=== PATIENT | male | born 1980 | race Caucasian/White ===

== ENCOUNTER 2022-02-06 10:47 | Emergency (ER) | payer SELFPAY ==
[2022-02-06 11:00] VITALS: BP 152/105; PULSE 103; RESP 18; TEMP 37.2; O2SAT 99; BMI 33.3
--- NOTE | 2022-02-06 11:13 | W.ED.EYEPROB ---
HPI - Eye Problem General: Chief complaint: Eye Problems Stated complaint: Left eye red and sore for a week Time Seen by Provider: 02/06/22 10:59 Source: patient Mode of arrival: ambulatory Limitations: no limitations History of Present Illness: 41-year-old male states he has had redness to his left eye over the last 6 days he had some slight pain he has had discharge denies any known injuries denies any foreign bodies states has been doing [id number] drops it was improving but is worsened over the last 2 days. Denies any change in vision Associated symptoms: Denies fever(s), headache(s), nausea, neck pain or vomiting Review of Systems Const: Denies: fever(s), chills, body aches or change in appetite Eyes: Reports: eye redness ENMT: Denies: throat pain or dental pain Card: Denies: chest pain Resp: Denies: dyspnea GI: Denies: abdominal pain, nausea, vomiting or diarrhea : Denies: dysuria Musc: Denies: neck pain or back pain Skin/Breast: Denies: rash Neuro: Denies: headache(s) Psych: Denies: depression Jose/Lymph: Denies: easy bruising All/Imm: Denies: urticaria PFSH ED PFSH: Medical History No pertinent past medical history Social History (Updated 02/06/22 @ 11:17 by Shiela King MD) Substance/Drug Use: never Physical Exam Const: COMMON NORMALS: no acute distress, patient oriented x3 and healthy appearing HENMT: COMMON NORMALS: normocephalic and atraumatic HEAD & SCALP: normocephalic and atraumatic Eye: COMMON NORMALS: Equal, round and reactive pupils present and EOMs intact bilaterally PUPIL: Yes Equal, round and reactive pupils present OTHER: Small corneal abrasion under fluorescein stain does have conjunctivitis Neck/C-Spine: COMMON NORMALS: full ROM and supple Chest: COMMONS NORMALS: normal inspection of the chest Resp: COMMON NORMALS: normal respiratory effort Cardio: COMMON NORMALS: regular rate, regular rhythm and No murmurs present (Cardio) RATE: regular rate RHYTHM: regular rhythm GI: INSPECTION: Yes normal to inspection Extremity: COMMON NORMALS: normal to inspection and full ROM Neuro: COMMON NORMALS: patient oriented x3, moves all extremities and no focal motor deficits Psych: COMMON NORMALS: mental status grossly normal, Normal thought process present and cooperative THOUGHT PROCESS: Normal thought process present Skin: COMMON NORMALS: no rashes or lesions noted and no wounds GENERAL SKIN EXAM: no rashes or lesions noted Course Vital Signs: Vital signs: Vital Signs Temperature 99 F 02/06/22 11:00 Pulse Rate 103 H 02/06/22 11:00 Respiratory Rate 18 02/06/22 11:00 Blood Pressure 152/105 02/06/22 11:00 Pulse Oximetry 99 02/06/22 11:00 MDM - Eye Problem Medical Decision Making Patient presents here with corneal abrasion that is minor with a conjunctivitis as well we will start him on erythromycin to follow-up with ophthalmology he has no ulcers he is stable for discharge return if worsening Discharge Plan Discharge Patient Disposition: Home Clinical Impression: Bacterial conjunctivitis, Corneal abrasion Condition: Stable Prescriptions: New erythromycin 5 mg/gram (0.5 %) ointment 1 applic ophthalmic (eye) Q6H 7 Days Qty: 3.5 0RF Discharge Orders: Discharge ED (Routine); Ordered 02/06/22 Ordered By: Shiela King Referrals: Mora Rdz, SENIOR SALES REPRESENTATIVE-C [Primary Care Provider] - Ino Merida MD [Physician] - 1-3 days Discharge Diet: Advance as tolerated Discharge Activity: Resume usual activity Patient Instructions: Corneal Abrasion (ED), Conjunctivitis (ED) Coding Level of Care Code ED Rate Clerk for Myra Russell
--- NOTE | 2022-02-08 11:25 | DCPLANNER ---
Addendum entered by Mey Chau 02/25/22 12:04: hedge fund manager called the office of Dr. Merida to confirm that patient had been seen. hedge fund manager was told that clinic called and left a voicemail for patient to call clinic to schedule an appointment. Original Note: hedge fund manager had message to schedule a follow up appointment for patient with Dr. Merida. hedge fund manager faxed patients information to the office of Dr. Merida. Clinic will call patient with appointment information.
== END 2022-02-06 11:25 | disposition home or self-care (01) ==
PROVIDERS: Emergency Provider Emergency Medicine; PCP Nurse Practitioner
DX: H10.9 Unspecified conjunctivitis (principal); S05.02XA Injury of conjunctiva and corneal abrasion without foreign body, left eye, initial encounter; X58.XXXA Exposure to other specified factors, initial encounter
CPT/HCPCS: 99283

== ENCOUNTER 2022-07-27 14:12 | Emergency (ER) | payer OTHER, SELFPAY ==
[2022-07-27 16:22] VITALS: BMI 33.3
[2022-07-27 16:25] VITALS: BP 121/81; PULSE 93; RESP 18; TEMP 36.6; O2SAT 99
--- NOTE | 2022-07-27 17:15 | W.ED.FALL ---
HPI - Fall General: Chief Complaint: Fall Stated Complaint: Lower back pain Time Seen by Provider: 07/27/22 17:14 History of Present Illness: 42-year-old male patient states he was leaning back in a chair at his place of employment which is one of the local [employer]. Reports that the chair came out from under him causing him to fall back. Patient has mid to low back pain. And difficulty standing and ambulating due to the pain. Patient appears nontoxic. Patient reports no prior back injury. Patient denies any chronic medical problems. Associated symptoms-after fall: Denies abdominal pain Review of Systems Const: Denies: fever(s) GI: Denies: abdominal pain : Denies: difficulty urinating Musc: Reports: back pain Skin/Breast: Denies: rash PFSH ED PFSH: Medical History No pertinent past medical history Physical Exam Const: COMMON NORMALS: alert HENMT: COMMON NORMALS: normocephalic HEAD & SCALP: normocephalic Neck/C-Spine: COMMON NORMALS: full ROM Chest: COMMONS NORMALS: normal palpation of entire chest wall Resp: COMMON NORMALS: normal respiratory effort and clear to auscultation bilaterally AUSCULTATION: clear to auscultation bilaterally GI: COMMON NORMALS: non-tender Back/Pelvis: THORACIC SPINE/UPPER BACK: No thoracic spinal tenderness and Yes paraspinal muscle tenderness LUMBAR SPINE/LOWER BACK: Yes lumbar spinal tenderness and Yes paraspinal muscle tenderness Extremity: COMMON NORMALS: full ROM Neuro: SENSORIUM/ORIENTATION: Yes alert Skin: COMMON NORMALS: turgor normal GENERAL SKIN EXAM: turgor normal Course Vital Signs: Vital signs: Vital Signs Temperature 97.8 F 07/27/22 16:25 Pulse Rate 93 07/27/22 16:25 Respiratory Rate 18 07/27/22 16:25 Blood Pressure 121/81 07/27/22 16:25 Pulse Oximetry 99 07/27/22 16:25 Oxygen Delivery Me thod 07/27/22 16:25 MDM - Fall Medical Decision Making 42-year-old male patient comes in today with injuries due to a fall in the chair. Patient reports mid to low back pain. On exam patient has paraspinous muscle tenderness of the low thoracic and lumbar spine area. Some point tenderness is noted along the low back. Abdomen soft nontender. Chest wall is nontender. Patient moves all extremities well. Differential diagnosis includes but not limited to fracture, strain, contusion. X-rays showed no definitive sign of fracture. Reviewed exam with patient with recommendations for treatment and follow-up. Patient was written for a walker to assist with mobility. Patient was also written for some diclofenac for pain and inflammation. And hydrocodone for severe pain. Patient reported understanding of care plan need for follow-up with primary care or Workmen's Comp. specialist. Lab Data Radiology Impressions Lumbar Spine X-Ray 07/27/22 17:20 IMPRESSION: Question of slight wedging of T12 versus normal variation. No definite acute fracture is identified. Thoracic Spine X-Ray 07/27/22 17:20 IMPRESSION: Mild degenerative changes. No definite fracture is identified. Discharge Plan Discharge Patient Disposition: Home Clinical Impression: Acute lumbar back pain Qualifiers: Back pain laterality: midline Sciatica presence: without sciatica Qualified Code(s): M54.50 - Low back pain, unspecified Accidental fall from chair Qualifiers: Encounter type: initial encounter Qualified Code(s): W07.XXXA - Fall from chair, initial encounter Condition: Stable Prescriptions: New hydrocodone-acetaminophen 5-325 mg tablet 1 tab PO Q6H PRN (Reason: pain (scale score 7-10)) Qty: 14 0RF diclofenac sodium 75 mg tablet,delayed release (DR/EC) 75 mg PO BID Qty: 30 0RF Discharge Orders: Discharge ED (Routine); Ordered 07/27/22 Ordered By: Jag Regan Other Ambulatory Orders: DME: Walker (Order) Location: None Selected Ordered By: Jag Regan Referrals: Mora Rdz, SUPERVISOR [employer]WORKING-C [Primary Care Provider] - Discharge Diet: Usual diet Discharge Activity: Increase activity as tolerated Patient Instructions: Acute Low Back Pain (ED), Opioid Safety Activity Restrictions/Additional Instructions: Activity as tolerated. Gentle stretching and range of motion exercises. Try to maintain normal daily activity as much as possible. Use a walker to help ambulate. Use ice or heat for further pain relief. Use acetaminophen as needed for mild pain. Take diclofenac 75 mg 1 tablet twice a day routinely for pain and inflammation. Use hydrocodone for severe pain. Do not use ibuprofen or naproxen while taking diclofenac. Follow-up with primary care in 2 days for recheck. Return to ER for worsening symptoms such as loss of bowel or bladder control or high fever or new concerns. Coding Level of Care Code ED Senior Engineer for Myra Russell
--- NOTE | 2022-07-27 17:20 | XRR_ITS ---
PROCEDURE INFORMATION: Exam: XR Thoracic Spine Exam date and time: 07/27/2022 5:29 PM Age: 42 years old Clinical indication: Injury or trauma; Fall; Blunt trauma (contusions or hematomas); Additional info: Fall injury TECHNIQUE: Imaging protocol: Radiologic exam of the thoracic spine. Views: 3 views. COMPARISON: No relevant prior studies available. FINDINGS: Limitations: T12 is not fully imaged in the lateral projection. Bones/joints: No fracture is identified. There are mild degenerative changes in the lower thoracic spine. Soft tissues: Paraspinous stripe is intact. XR/XR thoracic spine 3V* [id number] IMPRESSION: Mild degenerative changes. No definite fracture is identified.
--- NOTE | 2022-07-27 17:20 | XRR_ITS ---
PROCEDURE INFORMATION: Exam: XR Lumbosacral Spine Exam date and time: 07/27/2022 5:29 PM Age: 42 years old Clinical indication: Injury or trauma; Fall; Blunt trauma (contusions or hematomas); Additional info: Fall injury TECHNIQUE: Imaging protocol: Radiologic exam of the lumbosacral spine. Views: 2 or 3 views. COMPARISON: No relevant prior studies available. FINDINGS: Bones/joints: There is no definite acute fracture identified. Intervertebral disc spaces are preserved. There is slight wedge-shaped of T12 but within the range of normal variation. Please correlate with clinical findings. Soft tissues: Unremarkable. XR/XR lumbar spine 2-3V* [id number] IMPRESSION: Question of slight wedging of T12 versus normal variation. No definite acute fracture is identified.
[2022-07-27] MEDS: HYDROcodone-acetaminophen 10-325 mg Tablet 1 TAB PO (17:41)
== END 2022-07-27 18:07 | disposition home or self-care (01) ==
PROVIDERS: Emergency Provider Nurse Practitioner Family; PCP Nurse Practitioner
DX: M54.50 Low back pain, unspecified (principal); Z74.09 Other reduced mobility; W07.XXXA Fall from chair, initial encounter
CPT/HCPCS: 72072; 72100; 99283